=== PATIENT | female | born 2000 | race Caucasian/White ===

== ENCOUNTER 2022-04-28 12:52 | Emergency (ER) | payer OTHER, BC, MEDICAID, SELFPAY ==
--- NOTE | ~2022-04-28 | XR_ITS ---
XR knee RT min 4V DATE: 04/28/2022 14:13 INDICATION: Posterior knee pain after jumping into shallow water 1.5 weeks ago TECHNIQUE: 4 views COMPARISON: None FINDINGS: No fracture or dislocation or joint effusion, periosteal reaction or bone destruction, join t space narrowing, radiopaque intra-articular loose body or chondrocalcinosis is noted. IMPRESSION: Negative Reviewed, dictated and finalized at location B. IMPRESSION: Negative
[2022-04-28 13:00] VITALS: BP 118/70; PULSE 78; RESP 16; TEMP 36.4; O2SAT 100
--- NOTE | 2022-04-28 14:34 | ED.GENADULT ---
HPI - General Adult General Chief complaint: Extremity Injury, Lower Stated complaint: right knee pain after fall x 4 days ago Time Seen by Provider: 04/28/22 13:23 Source: RN notes reviewed History of Present Illness HPI narrative: Patient presents emergency department from home for right knee pain. Patient states she initially hurt her knee on April 17 she states that she had been [place] at that time and twisted her knee and heard a pop she states that since that time she is had pain in her right knee that is worse with ambulation states that she has been doing well but better than when back to work recently and standing on her feet all day has made the pain worse the pain is located in the right knee as well as behind the right knee she states the pain is worse with bending the knee she denies any numbness or tingling in the extremities she denies any other injury Related Data Allergies Allergy/AdvReac Type Severity Reaction Status Date / Time amoxicillin Allergy Rash Verified 04/28/22 12:54 Review of Systems Review of Systems: Gen.: Denies fevers or chills Musculoskeletal: See HPI Neuro: Denies numbness, tingling, weakness Skin: Denies rash Endo: Denies DM PMFSH Past Medical History Medical History (Updated 04/28/22 @ 14:37 by Camilo Cantor DO) Patient denies significant medical history Social History Social History (Updated 04/28/22 @ 14:35 by Camilo Cantor DO) Smoking status: Never smoker Exam Narrative: APPEARANCE: No acute distress, nontoxic, resting in bed Eyes: EOMI HEENT: Normocephalic, atraumatic, RESPIRATORY: No respiratory distress MUSCULOSKELETAl: Tender to palpation of the left medial and posterior knee no sign ecchymosis pain with flexion greater than 45 degrees no tenderness of the right ankle or hip dorsalis pedis pulse 2+ neurovascular intact NEURO: Awake and alert. Following commands, speech normal, no focal deficits SKIN:: Warm, dry. Normal Color no rash or lesions Course Course Emergency Course: Discussed with patient results of workup and diagnosis. Discussed need for follow-up with primary care, proper use of medication, and reasons to return to the emergency department. Patient understands and agrees to current treatment plan Vital Signs Vital signs: Vital Signs Temperature 97.6 F 04/28/22 13:00 Pulse Rate 78 04/28/22 13:00 Respiratory Rate 16 04/28/22 13:00 Blood Pressure 118/70 04/28/22 13:00 Pulse Oximetry 100 04/28/22 13:00 Oxygen Delivery Room Air 04/28/22 13:00 Temperature 97.6 F 04/28/22 13:00 Pulse Rate 78 04/28/22 13:00 Respiratory Rate 16 04/28/22 13:00 Blood Pressure 118/70 04/28/22 13:00 Pulse Oximetry 100 04/28/22 13:00 Oxygen Delivery Room Air 04/28/22 13:00 Medical Decision Making Vital Signs Vital Signs: Vital Signs Temperature 97.6 F 04/28/22 13:00 Pulse Rate 78 04/28/22 13:00 Respiratory Rate 16 04/28/22 13:00 Blood Pressure 118/70 04/28/22 13:00 Pulse Oximetry 100 04/28/22 13:00 Oxygen Delivery Room Air 04/28/22 13:00 Temperature 97.6 F 04/28/22 13:00 Pulse Rate 78 04/28/22 13:00 Respiratory Rate 16 04/28/22 13:00 Blood Pressure 118/70 04/28/22 13:00 Pulse Oximetry 100 04/28/22 13:00 Oxygen Delivery Room Air 04/28/22 13:00 Imaging Data Radiologist's impression: ITS Impressions Knee X-Ray 04/28/22 14:14 IMPRESSION: Negative Discharge Plan Discharge Clinical Impression: Right knee sprain Patient Disposition: Home, Self-Care Condition: Stable Instructions: Antibiotic Form, Knee Sprain (DC) Additional Instructions: Return for increasing pain numbness or tingling in extremities or any other symptoms of concern Prescriptions: New ibuprofen 600 mg tablet 600 mg PO TID PRN (Reason: pain) Qty: 14 0RF Follow-up/Referrals: PHYSICIAN NOT ON STAFF,NONSTAFF [Primary Care Provider] - Lynne Lloyd
== END 2022-04-28 15:06 | disposition home or self-care (01) ==
PROVIDERS: Emergency Provider Emergency Medicine
DX: S83.91XA Sprain of unspecified site of right knee, initial encounter (principal); X50.0XXA Overexertion from strenuous movement or load, initial encounter
CPT/HCPCS: 73564; 99283